=== PATIENT | female | born 1970 | race Caucasian/White ===

== ENCOUNTER 2018-04-04 17:05 | Emergency (ER) | payer OTHER ==
[2018-04-04 17:24] VITALS: BP 118/72; PULSE 97; TEMP 99.1; BMI 24.4
[2018-04-04] MEDS ORDERED: KETOROLAC TROMETHAMINE 60 MG/2 ML VIAL IM ONE (18:02)
[2018-04-04] MEDS ORDERED: traMADol HCL 50 MG TABLET PO ONE (18:03)
[2018-04-04] MEDS ORDERED: KETOROLAC TROMETHAMINE 60 MG/2 ML VIAL ONE (18:07)
[2018-04-04] MEDS ORDERED: traMADol HCL 50 MG TABLET ONE (18:08)
--- NOTE | 2018-04-04 18:41 | PDOC ---
History of Present Illness - General Chief Complaint: Pain, Acute Stated Complaint: PAIN Time Seen by Provider: 04/04/18 17:41 History Source: Patient - History of Present Illness Occurred: reports: last week Severity: reports: moderate Pain Location: reports: back Past History - Past Medical History Allergies/Adverse Reactions: Allergies Allergy/AdvReac Type Severity Reaction Status Date / Time No Known Drug Allergies Allergy Verified 04/04/18 17:18 PEANUTS Allergy Cough Uncoded 04/04/18 17:18 SHRIMP Allergy Cough Uncoded 04/04/18 17:18 Home Medications: Ambulatory Orders Montelukast Na [Singulair -] 10 mg PO HS 07/02/14 Lidocaine 5% Patch [Lidoderm Patch -] 1 patch TP DAILY #7 patch 04/04/18 Tramadol HCl 50 mg PO Q6H #15 tablet MDD 200 mg 04/04/18 Anemia: Yes Asthma: Yes Cancer: No Cardiac Disorders: No CVA: No COPD: No CHF: No DVT: No Dementia: No Diabetes: No GI Disorders: No Disorders: No HTN: No Hypercholesterolemia: No Liver Disease: No Seizures: No Thyroid Disease: No Other medical history: seasonal allergies - Surgical History Abdominal Surgery: No Appendectomy: No Cardiac Surgery: No Cholecystectomy: No Lung Surgery: No Neurologic Surgery: No Orthopedic Surgery: No - Immunization History Immunization Up to Date: Yes - Suicide/Smoking/Psychosocial Hx Smoking History: Never smoked Have you smoked in the past 12 months: No Information on smoking cessation initiated: No Hx Alcohol Use: No Drug/Substance Use Hx: No Substance Use Type: None Hx Substance Use Treatment: No Review of Systems - Review of Systems Constitutional: No: Chills, Fever ABD/GI: No: Nausea, Vomiting, Abdominal cramping : No: Dysuria, Hematuria Musculoskeletal: Yes: Back Pain *Physical Exam - Vital Signs Last Vital Signs Temp Pulse Resp BP Pulse Ox 99.1 F 97 H 18 118/72 99 04/04/18 17:19 04/04/18 17:19 04/04/18 17:19 04/04/18 17:19 04/04/18 17:19 ED Treatment Course - Medications Given in the ED: ED Medications Discontinued Medications Generic Name Dose Route Start Last Admin Trade Name Freq PRN Reason Stop Dose Admin Ketorolac Tromethamine 60 mg 04/04/18 18:02 04/04/18 18:14 Toradol Injection - IM 04/04/18 18:03 60 mg ONCE ONE Administration Tramadol HCl 50 mg 04/04/18 18:03 04/04/18 18:14 Ultram - PO 04/04/18 18:04 50 mg ONCE ONE Administration Medical Decision Making - Medical Decision Making 04/04/18 18:36 47 yo F, no pmhx, here w/ R lower back pain radiating to R hip/thigh that started week ago, constant now and worsens with certain movements and sitting. No lower extremity weakness, sensory changes, bowel or bladder incontinence or saddle anesthesia. No dysuria, hematuria, abdominal pain, nausea, vomiting, fever or chills. Denies any trauma or other obvious inciting agents. Taking otc meds w/ no relief. No history of kidney stone. No history of similar episode. See exam Lower back pain Suspect MSK source No e/o infxn No e/o aortic pathology No trauma -pain control and reassess -anticipate dc w/ pmd f/u 04/04/18 19:21 Pt reports feeling better at this time. Stable for discharge with pain control and PMD follow-up *DC/Admit/Observation/Transfer Diagnosis at time of Disposition: Low back pain Qualifiers: Chronicity: acute Back pain laterality: right Sciatica presence: without sciatica Qualified Code(s): M54.5 - Low back pain - Discharge Dispostion Disposition: HOME Condition at time of disposition: Improved - Prescriptions Prescriptions: Lidocaine 5% Patch [Lidoderm Patch -] 1 patch TP DAILY #7 patch Tramadol HCl 50 mg PO Q6H #15 tablet MDD 200 mg - Referrals Referrals: Barrie Yung MD [Primary Care Provider] - - Patient Instructions - Post Discharge Activity
[2018-04-04 18:47] LABS: HCG,QUALITATIVE URINE NEGATIVE
[2018-04-04 20:14] LABS: URINE APPEARANCE Clear; URINE BILIRUBIN Negative (NEGATIVE); URINE GLUCOSE (UA) Negative (NEGATIVE); URINE KETONE Negative (NEGATIVE); URINE LEUK ESTERASE Negative (NEGATIVE); URINE NITRITE Negative (NEGATIVE); URINE PROTEIN Negative (NEGATIVE); URINE UROBILINOGEN 0.2 (0.2-1.0)
[2018-04-04 20:15] LABS: URINE COLOR YELLOW
== END 2018-04-04 19:25 | disposition home or self-care (01) ==
LOC: JERFT 17:05
PROC: 3E0233Z Introduction of Anti-inflammatory into Muscle, Percutaneous Approach (ICD-10-PCS; principal; 2018-04-04)
DX: M54.5 Low back pain (principal)
CPT/HCPCS: 81003; 84703; 99281-25

== ENCOUNTER 2023-11-22 09:25 | Emergency (ER) | payer OTHER ==
[2023-11-22 09:37] VITALS: BP 99/67; PULSE 86; RESP 18; TEMP 98.3; BMI 25.6
[2023-11-22] MEDS ORDERED: FAMOTIDINE 20 MG TABLET PO ONE (09:53)
[2023-11-22] MEDS ORDERED: SODIUM CHLORIDE 0.9% 500 ML INFUS.BAG IV ONE (09:53)
[2023-11-22] MEDS ORDERED: ONDANSETRON 4 MG/2 ML VIAL IVPUSH ONE (09:53)
[2023-11-22] MEDS ORDERED: MAG HYDROX/AL HYDROX/SIMETH 30 ML UNIT-DOSE CUP PO ONE (09:53)
[2023-11-22] MEDS ORDERED: MAG HYDROX/AL HYDROX/SIMETH 30 ML UNIT-DOSE CUP ONE (10:27)
[2023-11-22] MEDS ORDERED: ONDANSETRON 4 MG/2 ML VIAL ONE (10:27)
[2023-11-22] MEDS ORDERED: FAMOTIDINE 20 MG/50 ML IVPB 20 MG/50 ML MG IVPB ONE (10:27)
[2023-11-22 10:54] LABS: BASO % 0.2 % (0-2.0); EOS % 0.5 % (0-4.5); HEMATOCRIT 37.6 % (32.4-45.2); HEMOGLOBIN 12.8 GM/dL (10.7-15.3); LYMPH % 17.6 % (8-40); MCH 29.1 pg (25.7-33.7); MCHC 33.9 g/dl (32.0-36.0); MEAN CELL VOLUME 85.8 fl (80-96); MEAN PLT VOLUME 7.5 fl (7.5-11.1); MONO % 3.9 % (3.8-10.2); NEUT % 77.8 % (42.8-82.8); PLATELET COUNT 384 10^3/uL (134-434); RBC 4.38 M/mm3 (3.60-5.2); RDW 13.7 % (11.6-15.6); WHITE BLOOD COUNT 7.5 K/mm3 (4.0-10.0)
[2023-11-22 10:59] LABS: EPI CELLS 27 /uL (0-25.1); HYALINE CASTS 1 /uL (0-3.1); PH,URINE 5.5 (5.0-8.0); URINE APPEARANCE CLEAR; URINE BACTERIA 510 /uL (0-1359); URINE BILIRUBIN NEGATIVE (NEGATIVE); URINE COLOR YELLOW; URINE GLUCOSE (UA) NEGATIVE (NEGATIVE); URINE KETONE NEGATIVE (NEGATIVE); URINE LEUK ESTERASE 2+ (NEGATIVE); URINE NITRITE NEGATIVE (NEGATIVE); URINE PROTEIN NEGATIVE (NEGATIVE); URINE RBC 9 /uL (0-23.9); URINE UROBILINOGEN 0.2 mg/dL (0.2-1.0); URINE WBC 83 /uL (0-25.8)
[2023-11-22 11:18] LABS: POTASSIUM 3.3 mmol/L (3.5-5.1)
[2023-11-22 11:25] LABS: CALCIUM 9.4 mg/dL (8.5-10.1)
[2023-11-22 11:26] LABS: ALBUMIN 4.1 g/dl (3.4-5.0); BLOOD UREA NITROGEN 11.8 mg/dL (7-18)
[2023-11-22 11:28] LABS: CREATININE 0.7 mg/dL (0.55-1.3)
[2023-11-22 11:30] LABS: BILIRUBIN,TOTAL 0.6 mg/dL (0.2-1); TOT PROT 7.6 g/dl (6.4-8.2)
== END 2023-11-22 12:23 | disposition home or self-care (01) ==
LOC: JER 09:25
PROC: 3E033GC Introduction of Other Therapeutic Substance into Peripheral Vein, Percutaneous Approach (ICD-10-PCS; principal; 2023-11-22)
DX: R10.13 Epigastric pain (principal); R11.2 Nausea with vomiting, unspecified; K29.00 Acute gastritis without bleeding; Z20.822 Contact with and (suspected) exposure to COVID-19
CPT/HCPCS: 0241U-QW; 36415; 80053; 81003; 83690; 84703; 85025; 87086; 93005; 93010; 99284-25